=== PATIENT | male | born 1940 | race Caucasian/White ===

== ENCOUNTER 2017-12-10 05:48 | Day surgery (SDC) | payer MEDICARE, OTHER, SELFPAY ==
[2017-12-10] VITALS (7 sets, daily range): BP systolic 126–138; BP diastolic 64–83; PULSE 52–65; RESP 14–16; TEMP 36.1–36.6; O2SAT 92–100; BMI 30.9
--- NOTE | 2017-12-10 07:01 | US_ITS ---
PROCEDURES: TRANSRECTAL ULTRASOUND GUIDED - PROSTATE REASON FOR EXAM: Male, 77 years old. History of prostate cancer. TECHNIQUE: Ultrasound evaluation of the prostate was performed with real-time and static felton-scale imaging. BIOPSY: Prostate marker was placed under direct sonographic guidance. A consent form was signed, PT-PTT levels checked and a time-out was called. The patient is currently off any anticoagulant therapy. Cleansing enema: Yes COMPARISON: None. US/Intraoperative Ultrasound IMPRESSION: Ultrasound guided prostate marker placement. Electronically Signed: Mohan Chapman MD at 9:01 EST Tel [phone], Service support ,
--- NOTE | 2017-12-10 07:15 | PCM.DC.URO ---
Discharge Diet: Light diet - advance as tolerated Discharge Activity: Return to Normal Activity Call your doctor if your incision/area has: Continuous Slow Oozing, Sudden Increased Bleeding, Increased Pain/ Swelling, Increased Redness, Foul Smelling Discharge, Swelling at the incision site Suture Line Care: Avoid Pulling/Pushing, Avoid Pinching/Bending Allergies/Adverse Reactions: Allergies sulfamethoxazole [From Bactrim] Adverse Reaction (Verified 12/03/17 12:15) Nausea trimethoprim [From Bactrim] Adverse Reaction (Verified 12/03/17 12:15) Nausea Medications to take at Discharge Bicalutamide [Casodex] 50 mg PO DAILY 12/03/17 Leuprolide Acetate [Eligard] 30 mg SQ QMONTH 12/03/17 Primary Care Physician: Jb Yeboah MD [Primary Care Provider] - Please Follow Up With: Marek Verde MD When: Keep follow up appt.
[2017-12-10] MEDS: Cefazolin 2 GM in 0.9% Normal Saline 100 ML IV (07:16)
[2017-12-10] MEDS: Lidocaine Jelly 2% 20 ML Syringe (URO-JET) 20 APPLIC (07:22)
--- NOTE | 2017-12-10 07:26 | PCM.OPRPT ---
Problem List (1) Prostate cancer Status: Acute Report of Operation Date of Procedure: 12/10/17 Pre-Operative Diagnosis: Prostate cancer Post-Operative Diagnosis: Same Surgery/Procedure Performed:: Transrectal ultrasound-guided placement of 3 gold fiducial markers for radiation. Description of Surgical Findings:: 77-year-old male was taken back to the operating room after smooth induction of MAC local he was placed in dorsal lithotomy position. The patient requested anesthesia for this procedure. We then put up in dorsal lithotomy position. I introduced the ultrasound probe into the rectum. And used a guide and advanced the first security supervisor into the prostate on the right side. After placing a marker then I placed a second marker on the left side mid prostate. And then finally placed the ballast inspector on the right apex. After placing the 3 gold markers we could both visualized these on the ultrasound images were saved. Anesthesia was reversed probe was removed and he is taken back to the PACU in good condition. He will follow-up in my office for another hormone shot and he will start radiation therapy soon. Type of Anesthesia:: Local MAC Drains: none - Admit VTE Documentation VTE Present on Admission: No VTE Mechan Device Prophylaxis: SCD's VTE Pharm Prophylaxis ordered?: No Reason prophylaxis not ordered:: Treatment Not Indicated
--- NOTE | 2017-12-10 07:30 | OP.PCM_ITS ---
Problem List (1) Prostate cancer Status: Acute Report of Operation Date of Procedure: 12/10/17 Pre-Operative Diagnosis: Prostate cancer Post-Operative Diagnosis: Same Surgery/Procedure Performed:: Transrectal ultrasound-guided placement of 3 gold fiducial markers for radiation. Description of Surgical Findings:: 77-year-old male was taken back to the operating room after smooth induction of MAC local he was placed in dorsal lithotomy position. The patient requested anesthesia for this procedure. We then put up in dorsal lithotomy position. I introduced the ultrasound probe into the rectum. And used a guide and advanced the first temple marker into the prostate on the right side. After placing a marker then I placed a second marker on the left side mid prostate. And then finally placed the boat patcher plastic on the right apex. After placing the 3 gold markers we could both visualized these on the ultrasound images were saved. Anesthesia was reversed probe was removed and he is taken back to the PACU in good condition. He will follow-up in my office for another hormone shot and he will start radiation therapy soon. Type of Anesthesia:: Local MAC Drains: none - Admit VTE Documentation VTE Present on Admission: No VTE Mechan Device Prophylaxis: SCD's VTE Pharm Prophylaxis ordered?: No Reason prophylaxis not ordered:: Treatment Not Indicated
== END 2017-12-10 08:29 | disposition home or self-care (01) ==
LOC: SDC 05:49 → AC 05:51
PROVIDERS: Family Provider Family Medicine; PCP Family Medicine; Visit Provider Urology
DX: C61 Malignant neoplasm of prostate (principal); E78.00 Pure hypercholesterolemia, unspecified; N52.9 Male erectile dysfunction, unspecified; R97.20 Elevated prostate specific antigen [PSA]; Z87.891 Personal history of nicotine dependence
CPT/HCPCS: 55876; 76998; J3010; J7120; J2405

== ENCOUNTER → 2017-12-27 11:24 | Outpatient (CLI) | payer MEDICARE, OTHER, SELFPAY ==
[2017-12-27 12:12] LABS: Absolute Lymphocyte Count 1.43 X10^3/ul (0.83-4.51); Absolute Neutrophil Count 3.4 X10^3/uL (2.0-7.7); Basophil# 0.01 X10^3/uL; Basophil% 0.2 % (0-1); Eosinophil# 0.13 X10^3/uL; Eosinophils% 2.4 % (0-5); Hematocrit 43.8 % (40-54); Hemoglobin 14.4 g/dl (13.0-16.5); Lymphocyte # 1.43 X10^3/ul (4.0); Lymphocyte % 26.6 % (19-41); Mean Corp Hgb Conc 32.9 g/gl (32-36); Mean Corpuscular Hgb 29.9 pg (27.0-32.0); Mean Corpuscular Volume 91.1 fL (80-94); Mean Platelet Vol. 10.8 fl (6.2-12.0); Monocyte# 0.41 X10^3/uL; Monocyte% 7.6 % (0-10); Neutrophil # 3.37 X10^3/uL (2.7-7.7); Neutrophil % 62.8 % (47-70); Platelet Count 252 K/mm3 (150-450); RBC Distribution Width CV 12.3 % (11.6-14.6); RBC Distribution Width SD 40.7 fl (35.1-43.9); Red Blood Count 4.81 M/mm3 (4.6-6.2); White Blood Count 5.4 K/mm3 (4.4-11.0)
[2017-12-27 12:20] LABS: POSITIVE COUNT NO; POSITIVE DIFFERENTIAL NO; POSITIVE MORPHOLOGY NO
[2017-12-27 12:48] LABS: Creatinine, Serum 1.17 mg/dL (0.70-1.30); EST Glomerular Filtration Rate 64 mL/min (>60); Est Glom Filt Rate - Afr Amer 78 mL/min (>60); PSA,Total- Diagnostic 0.09 ng/mL (0.0-4.0)
== END ==
PROVIDERS: Family Provider Family Medicine; PCP Family Medicine; Visit Provider Radiology Radiation Oncology
DX: C61 Malignant neoplasm of prostate (principal); Z01.818 Encounter for other preprocedural examination
CPT/HCPCS: 36415; 82565; 84153; 85025

== ENCOUNTER → 2017-12-28 13:12 | Outpatient (CLI) | payer MEDICARE, OTHER, SELFPAY ==
--- NOTE | 2017-12-28 13:14 | CT_ITS ---
STUDY: CT PELVIS WITH CONTRAST REASON FOR EXAM: Male, 77 years old. Prostate carcinoma, radiation plan. Prior surgical history of appendectomy. RADIATION DOSAGE (If Supplied By Facility): CTDIvol = ( 24.5 ) mGy, DLP = ( 962.66 ) mGycm TECHNIQUE: Transaxial imaging of the pelvis was performed without oral contrast. 100 ml of Isovue 300 contrast was administered intravenously. No sagittal/coronal reconstruction images available for review. Individualized dose optimization techniques were used for this CT. COMPARISON: CT abdomen/pelvis 08/09/2017. Correlation ultrasound prostate 12/10/2017. FINDINGS: Urinary bladder is moderately filled and shows no focal enhancing lesion. Moderate amount of dependent IV contrast fills the posterior bladder without obvious filling defect noted. However, inferior posterior bladder is indented by the enlarged prostate with smooth margins. Prostate is approximate 4.5 x 5.8 cm. High attenuation tubular structure is noted within the distal urethra but terminates near the inferior prostate. Seminal vesicles appear symmetric. Normal visualized small intestine. Normal visualized colon status post appendectomy. There is no pelvic fluid. There is no pelvic lymphadenopathy or mass lesion. Visualized pelvic arteries show no aneurysm with moderate bilateral calcifications noted. Normal abdominal wall. No ventral pelvic or visualized inguinal bowel herniation identified. Moderate L3-L4 and severe L4-L5 spinal canal stenosis and degenerative changes noted. CT/Pelvis WITH IV Contrast IMPRESSION: Prostatomegaly as described. No pelvic or visualized inguinal lymphadenopathy identified. Feng type urinary catheter is seen, terminates just below the prostate within the urethra. Clinical correlation recommended. Severe L4-L5 spinal canal stenosis and degenerative changes. Moderate L3-L4 spinal canal stenosis and degenerative changes noted. Electronically Signed: Daniel Rivas, at 16:34 EDT Tel , Service support ,
== END ==
PROVIDERS: Family Provider Family Medicine; PCP Family Medicine; Visit Provider Radiology Radiation Oncology
DX: C61 Malignant neoplasm of prostate (principal)
CPT/HCPCS: 72193; Q9967

== ENCOUNTER → 2018-01-26 14:18 | Outpatient (CLI) | payer MEDICARE, OTHER, SELFPAY ==
[2018-01-26 15:49] LABS: Absolute Lymphocyte Count 0.81 X10^3/ul (0.83-4.51); Absolute Neutrophil Count 3.3 X10^3/uL (2.0-7.7); Basophil# 0.02 X10^3/uL; Basophil% 0.4 % (0-1); Eosinophil# 0.11 X10^3/uL; Eosinophils% 2.3 % (0-5); Hematocrit 40.6 % (40-54); Hemoglobin 13.6 g/dl (13.0-16.5); Lymphocyte # 0.81 X10^3/ul (4.0); Mean Corp Hgb Conc 33.5 g/gl (32-36); Mean Corpuscular Hgb 30.6 pg (27.0-32.0); Mean Corpuscular Volume 91.2 fL (80-94); Monocyte# 0.46 X10^3/uL; Monocyte% 9.7 % (0-10); Neutrophil # 3.34 X10^3/uL (2.7-7.7); Neutrophil % 70.2 % (47-70); Platelet Count 175 K/mm3 (150-450); RBC Distribution Width CV 12.4 % (11.6-14.6); RBC Distribution Width SD 40.5 fl (35.1-43.9); Red Blood Count 4.45 M/mm3 (4.6-6.2); White Blood Count 4.8 K/mm3 (4.4-11.0)
[2018-01-26 15:50] LABS: POSITIVE COUNT NO; POSITIVE DIFFERENTIAL NO; POSITIVE MORPHOLOGY NO
== END ==
PROVIDERS: Family Provider Family Medicine; PCP Family Medicine; Visit Provider Radiology Radiation Oncology
DX: C61 Malignant neoplasm of prostate (principal)
CPT/HCPCS: 36415; 85025

== ENCOUNTER → 2018-02-17 11:36 | Outpatient (CLI) | payer MEDICARE, OTHER, SELFPAY ==
[2018-02-17 12:11] LABS: Absolute Lymphocyte Count 0.47 X10^3/ul (0.83-4.51); Absolute Neutrophil Count 2.7 X10^3/uL (2.0-7.7); Basophil# 0.01 X10^3/uL; Basophil% 0.3 % (0-1); Eosinophil# 0.12 X10^3/uL; Eosinophils% 3.2 % (0-5); Hematocrit 39.5 % (40-54); Hemoglobin 13.2 g/dl (13.0-16.5); Lymphocyte # 0.47 X10^3/ul (4.0); Lymphocyte % 12.4 % (19-41); Mean Corp Hgb Conc 33.4 g/gl (32-36); Mean Corpuscular Hgb 30.6 pg (27.0-32.0); Mean Corpuscular Volume 91.6 fL (80-94); Mean Platelet Vol. 10.1 fl (6.2-12.0); Monocyte# 0.48 X10^3/uL; Monocyte% 12.7 % (0-10); Neutrophil # 2.67 X10^3/uL (2.7-7.7); Neutrophil % 70.6 % (47-70); Platelet Count 225 K/mm3 (150-450); RBC Distribution Width CV 12.8 % (11.6-14.6); RBC Distribution Width SD 41.9 fl (35.1-43.9); Red Blood Count 4.31 M/mm3 (4.6-6.2); White Blood Count 3.8 K/mm3 (4.4-11.0)
[2018-02-17 12:17] LABS: Differential Indicated SCAN CRITERIA MET; POSITIVE COUNT NO; POSITIVE DIFFERENTIAL YES; POSITIVE MORPHOLOGY NO
== END ==
PROVIDERS: Family Provider Family Medicine; PCP Family Medicine; Visit Provider Radiology Radiation Oncology
DX: C61 Malignant neoplasm of prostate (principal)
CPT/HCPCS: 36415; 85025

== ENCOUNTER → 2018-09-05 09:36 | Outpatient (CLI) | payer MEDICARE, OTHER, SELFPAY ==
[2018-09-05 11:17] LABS: PSA,Total- Diagnostic < 0.01 ng/mL (0.0-4.0)
--- OUTSIDE RECORDS SUMMARY | 2018-10-29 14:05 | XMS RPT_ITS ---
:1940 Author Organization OHIP Care Team Providers Name Role Phone Marek Verde Attending Unavailable Marek Verde Referring Unavailable Yeboah, Jb Primary Care Unavailable Yayo Pastor Attending Unavailable Yayo Pastor Referring Unavailable Yeboah, Jb Primary Care Unavailable Yayo Pastor Attending Unavailable iderYayo Referring Unavailable Yeboah, Jb Primary Care Unavailable iderYayo Attending Unavailable Seider, Yayo Referring Unavailable Yeboah, Jb Primary Care Unavailable Yayo Pastor Attending Unavailable Seider, Yayo Referring Unavailable Yeboah, Jb Primary Care Unavailable Marek Verde Attending Unavailable Marek Verde Referring Unavailable Yeboah, Jb Primary Care Unavailable PROBLEMS PROBLEMS DATE TYPE CONDITION / CODE ATTENDING STATUS SOURCE 12/27/2017 Unknown C61 - Malignant Yayo Pastor neoplasm of Community prostate / Hospital C61(ICD-10) Repository 12/27/2017 Unknown Z01.818 - Encounter Yayo Pastor for other Community preprocedural Hospital examination / Repository Z01.818(ICD-10) PROCEDURES PROCEDURES No Procedure Records FoundRESULTS RESULTS PSA,TOTAL- DIAGNOSTIC Collected: 09/05/2018 Status: F Source: [place] 9:42 AM [facility] REPOSITORY TYPE CODE TESTS RESULT OUT OF RANGE REFERENCE UNITS LAB L501.9940 0.0-4.0 ng/mL PSA, Normal DIAGNOSTIC < 0.01 Result Comment: This test was performed using the TPSA assay method for the Mobile Shareholder chemistry system. Values obtained with different assay methods cannot be used interchangably. When changing PSA assays in the course of monitoring a patient, additional sequential testing should be carried out to confirm baseline values. Performed By: #### L501.9940 #### [facility] [place], [address] CBC W/DIFF, AUTOMATED Collected: 02/17/2018 Status: F Source: [place] 11:46 AM [facility] REPOSITORY TYPE CODE TESTS RESULT OUT OF RANGE REFERENCE UNITS LAB L100.1000 4.4-11.0 K/mm3 Low WBC 3.8 LAB L100.1200 4.6-6.2 M/mm3 Low RBC 4.31 LAB L100.1300 13.0-16.5 g/dl Normal HGB 13.2 LAB L100.1400 40-54 % Low HCT 39.5 LAB L100.1500 80-94 fL Normal MCV 91.6 LAB L100.1600 27.0-32.0 pg Normal MCH 30.6 LAB L100.1700 32-36 g/gl Normal MCHC 33.4 LAB L100.1810 11.6-14.6 % Normal RDW CV 12.8 LAB L100.1820 35.1-43.9 fl Normal RDW SD 41.9 LAB L100.1900 150-450 K/mm3 Normal PLT 225 LAB L100.2000 6.2-12.0 fl Normal MPV 10.1 LAB L100.2100 47-70 % High NEUT% 70.6 LAB L100.2200 19-41 % Low LY% 12.4 LAB L100.2300 0-10 % High MONO% 12.7 LAB L100.2400 0-5 % Normal EO% 3.2 LAB L100.2500 0-1 % Normal BASO% 0.3 LAB L100.2550 0.0-0.9 % Normal IM GRAN % 0.800 Result Comment: IG% - Immature Granulocytes (promyelocytes, myelocytes and metamyelocytes) > 1% indicates that a LEFT SHIFT is Present. LAB L100.2620 2.0-7.7 X10 3/uL Normal Absolute Neut 2.7 LAB L100.2720 0.83-4.51 X10 3/ul Low Absolute Lymph 0.47 LAB L100.4500 Normal SMEAR COMMENT COMMENT Result Comment: SLIDE SCANNED - LYMPHOPENIA NOTED. Performed By: #### L100.0100 #### [facility] [address] [place], [address] CBC W/DIFF, AUTOMATED Collected: 01/26/2018 Status: F Source: [place] 2:33 PM [facility] REPOSITORY TYPE CODE TESTS RESULT OUT OF RANGE REFERENCE UNITS LAB L100.1000 4.4-11.0 K/mm3 Normal WBC 4.8 LAB L100.1200 4.6-6.2 M/mm3 Low RBC 4.45 LAB L100.1300 13.0-16.5 g/dl Normal HGB 13.6 LAB L100.1400 40-54 % Normal HCT 40.6 LAB L100.1500 80-94 fL Normal MCV 91.2 LAB L100.1600 27.0-32.0 pg Normal MCH 30.6 LAB L100.1700 32-36 g/gl Normal MCHC 33.5 LAB L100.1810 11.6-14.6 % Normal RDW CV 12.4 LAB L100.1820 35.1-43.9 fl Normal RDW SD 40.5 LAB L100.1900 150-450 K/mm3 Normal PLT 175 LAB L100.2000 6.2-12.0 fl Normal MPV 11.0 LAB L100.2100 47-70 % High NEUT% 70.2 LAB L100.2200 19-41 % Low LY% 17.0 LAB L100.2300 0-10 % Normal MONO% 9.7 LAB L100.2400 0-5 % Normal EO% 2.3 LAB L100.2500 0-1 % Normal BASO% 0.4 LAB L100.2550 0.0-0.9 % Normal IM GRAN % 0.400 Result Comment: IG% - Immature Granulocytes (promyelocytes, myelocytes and metamyelocytes) > 1% indicates that a LEFT SHIFT is Present. LAB L100.2620 2.0-7.7 X10 3/uL Normal Absolute Neut 3.3 LAB L100.2720 0.83-4.51 X10 3/ul Low Absolute Lymph 0.81 Performed By: #### L100.0100 #### [facility] [address] [place], [address] PELVIS WITH IV Observed: 12/28/2017 Status: F Source: [place] CONTRAST 1:14 PM [facility] REPOSITORY [facility] Imaging Services [address] [place] [address] Pelvis WITH IV Contrast MR#: [id number] Acct: [id number] Name: AMENA JURADO Rep #: [id number] : 1940 M 77 From: Daniel Rivas MD PCP: Jb Yeboah MD Status: REG CLI Study: Pelvis WITH IV Contrast Date of Exam: 12/28/17 Exam# [id number] Ordering Dr: Yayo Pastor MD STUDY: CT PELVIS WITH CONTRAST REASON FOR EXAM: Male, 77 years old. Prostate carcinoma, radiation plan. Prior surgical history of appendectomy. RADIATION DOSAGE (If Supplied By Facility): CTDIvol = ( 24.5 ) mGy, DLP = ( 962.66 ) mGycm TECHNIQUE: Transaxial imaging of the pelvis was performed without oral contrast. 100 ml of Isovue 300 contrast was administered intravenously. No sagittal/coronal reconstruction images available for review. Individualized dose optimization techniques were used for this CT. COMPARISON: CT abdomen/pelvis 08/09/2017. Correlation ultrasound prostate 12/10/2017. FINDINGS: Urinary bladder is moderately filled and shows no focal enhancing lesion. Moderate amount of dependent IV contrast fills the posterior bladder without obvious filling defect noted. However, inferior posterior bladder is indented by the enlarged prostate with smooth margins. Prostate is approximate 4.5 x 5.8 cm. High attenuation tubular structure is noted within the distal urethra but terminates near the inferior prostate. Seminal vesicles appear symmetric. Normal visualized small intestine. Normal visualized colon status post appendectomy. There is no pelvic fluid. There is no pelvic lymphadenopathy or mass lesion. Visualized pelvic arteries show no aneurysm with moderate bilateral calcifications noted. Normal abdominal wall. No ventral pelvic or visualized inguinal bowel herniation identified. Moderate L3-L4 and severe L4-L5 spinal canal stenosis and degenerative changes noted. CT/Pelvis WITH IV Contrast IMPRESSION: Prostatomegaly as described. No pelvic or visualized inguinal lymphadenopathy identified. Feng type urinary catheter is seen, terminates just below the prostate within the urethra. Clinical correlation recommended. Severe L4-L5 spinal canal stenosis and degenerative changes. Moderate L3-L4 spinal canal stenosis and degenerative changes noted. Electronically Signed: Daniel Chower, at 16:34 EDT Tel , Service support , CC: Jb Yeboah MD; Yayo Pastor MD Nuclear Powerplant Supervisor: Signed CBC W/DIFF, AUTOMATED Collected: 12/27/2017 Status: F Source: [place] 11:28 AM [facility] REPOSITORY TYPE CODE TESTS RESULT OUT OF RANGE REFERENCE UNITS LAB L100.1000 4.4-11.0 K/mm3 Normal WBC 5.4 LAB L100.1200 4.6-6.2 M/mm3 Normal RBC 4.81 LAB L100.1300 13.0-16.5 g/dl Normal HGB 14.4 LAB L100.1400 40-54 % Normal HCT 43.8 LAB L100.1500 80-94 fL Normal MCV 91.1 LAB L100.1600 27.0-32.0 pg Normal MCH 29.9 LAB L100.1700 32-36 g/gl Normal MCHC 32.9 LAB L100.1810 11.6-14.6 % Normal RDW CV 12.3 LAB L100.1820 35.1-43.9 fl Normal RDW SD 40.7 LAB L100.1900 150-450 K/mm3 Normal PLT 252 LAB L100.2000 6.2-12.0 fl Normal MPV 10.8 LAB L100.2100 47-70 % Normal NEUT% 62.8 LAB L100.2200 19-41 % Normal LY% 26.6 LAB L100.2300 0-10 % Normal MONO% 7.6 LAB L100.2400 0-5 % Normal EO% 2.4 LAB L100.2500 0-1 % Normal BASO% 0.2 LAB L100.2550 0.0-0.9 % Normal IM GRAN % 0.400 Result Comment: IG% - Immature Granulocytes (promyelocytes, myelocytes and metamyelocytes) > 1% indicates that a LEFT SHIFT is Present. LAB L100.2620 2.0-7.7 X10 3/uL Normal Absolute Neut 3.4 LAB L100.2720 0.83-4.51 X10 3/ul Normal Absolute Lymph 1.43 Performed By: #### L100.0100 #### [facility] [address] [place], [place], [id number] SERUM CREATININE AND Collected: 12/27/2017 Status: F Source: [place] GFR 11:28 AM [facility] REPOSITORY TYPE CODE TESTS RESULT OUT OF RANGE REFERENCE UNITS LAB L501.1100 0.70-1.30 mg/dL Normal 1.17 CREAT,SERUM Result Comment: The validity of the calculated GFR AND GFRAA in patients over 70 years has not been determined. Clinical correlation is essential. LAB L501.1110 >60 mL/min Normal EST GFR 64 Result Comment: Non- GFR Calc LAB L501.1115 >60 mL/min Normal EST GFR - AA 78 Result Comment: GFR Calc Performed By: #### L501.1105, L501.9940 #### [facility] [address] [place], [place], [address] PSA,TOTAL- DIAGNOSTIC Collected: 12/27/2017 Status: F Source: [place] 11:28 AM [facility] REPOSITORY TYPE CODE TESTS RESULT OUT OF RANGE REFERENCE UNITS LAB L501.9940 0.0-4.0 ng/mL PSA, Normal DIAGNOSTIC 0.09 Result Comment: This test was performed using the TPSA assay method for the Mobile Shareholder chemistry system. Values obtained with different assay methods cannot be used interchangably. When changing PSA assays in the course of monitoring a patient, additional sequential testing should be carried out to confirm baseline values. Performed By: #### L501.1105, L501.9940 #### [facility] [address] [place], [address] OPERATIVE REPORT Observed: 12/10/2017 Status: F Source: [place] 7:30 AM [facility] REPOSITORY [facility] Medical Records Department [address] [place] [address] Operative Report 12/10/17725 MR#: [id number] Acct: [id number] Name: AMENA JURADO Rep #: [id number] : 1940 77 From: Marek Verde MD PCP: Jb Yeboah MD Status: REG [facility] [place] Location: [place] [address] Problem List (1) Prostate cancer Status: Acute Report of Operation Date of Procedure: 12/10/17 Pre-Operative Diagnosis: Prostate cancer Post-Operative Diagnosis: Same Surgery/Procedure Performed:: Transrectal ultrasound-guided placement of 3 gold fiducial markers for radiation. Description of Surgical Findings:: 77-year-old male was taken back to the operating room after smooth induction of MAC local he was placed in dorsal lithotomy position. The patient requested anesthesia for this procedure. We then put up in dorsal lithotomy position. I introduced the ultrasound probe into the rectum. And used a guide and advanced the first securities attorney into the prostate on the right side. After placing a marker then I placed a second marker on the left side mid prostate. And then finally placed the last inserter on the right apex. After placing the 3 gold markers we could both visualized these on the ultrasound images were saved. Anesthesia was reversed probe was removed and he is taken back to the PACU in good condition. He will follow-up in my office for another hormone shot and he will start radiation therapy soon. Type of Anesthesia:: Local MAC Drains: none - Admit VTE Documentation VTE Present on Admission: No VTE Mechan Device Prophylaxis: SCD's VTE Pharm Prophylaxis ordered?: No Reason prophylaxis not ordered:: Treatment Not Indicated 12/10/17729 <Electronically signed by Marek Verde MD> Date Marek Verde MD CC: Jb Yeboah MD; Marek Verde MD Signed DISCHARGE INSTRUCTION Observed: 12/10/2017 Status: F Source: [place] 7:16 AM [facility] Medical Records Department [address] [place] [address] Instructions for Home/Discharge Instructions 12/10/17714 MR#: [id number] Acct: [id number] Name: AMENA JURADO Rep #: [id number] : 1940 77 From: Marek Verde MD PCP: Jb Yeboah MD Status: REG [facility] Discharge Diet: Light diet - advance as tolerated Discharge Activity: Return to Normal Activity Call your doctor if your incision/area has: Continuous Slow Oozing, Sudden Increased Bleeding, Increased Pain/ Swelling, Increased Redness, Foul Smelling Discharge, Swelling at the incision site Suture Line Care: Avoid Pulling/Pushing, Avoid Pinching/Bending Allergies/Adverse Reactions: Allergies sulfamethoxazole [From Bactrim] Adverse Reaction (Verified 12/03/17 12:15) Nausea trimethoprim [From Bactrim] Adverse Reaction (Verified 12/03/17 12:15) Nausea Medications to take at Discharge Bicalutamide [Casodex] 50 mg PO DAILY 12/03/17 Leuprolide Acetate [Eligard] 30 mg SQ QMONTH 12/03/17 Primary Care Physician: Jb Yeboah MD [Primary Care Provider] - Please Follow Up With: Marek Verde MD When: Keep follow up appt. 12/10/17715 <Electronically signed by Marek Verde MD> Date Marek Verde MD CC: Jb Yeboah MD INTRAOPERATIVE ULTRASOUND Observed: 12/10/2017 Status: F Source: [place] 7:01 AM [facility] Imaging Services [address] [place] [address] Intraoperative Ultrasound MR#: [id number] Acct: [id number] Name: AMENA JURADO Rep #: [id number] : 1940 M 77 From: Mohan Chapman MD PCP: Jb Yeboah MD Status: [facility] Study: Intraoperative Ultrasound Date of Exam: 12/10/17 Exam# [id number] Ordering Dr: Marek Verde MD PROCEDURES: TRANSRECTAL ULTRASOUND GUIDED - PROSTATE REASON FOR EXAM: Male, 77 years old. History of prostate cancer. TECHNIQUE: Ultrasound evaluation of the prostate was performed with real-time and static felton-scale imaging. BIOPSY: Prostate marker was placed under direct sonographic guidance. A consent form was signed, PT-PTT levels checked and a time- out was called. The patient is currently off any anticoagulant therapy. Cleansing enema: Yes COMPARISON: None. US/Intraoperative Ultrasound IMPRESSION: Ultrasound guided prostate marker placement. Electronically Signed: Mohan Chapman MD at 9:01 EST Tel [phone], Service support , CC: Jb Yeboah MD; Marek Verde MD Nuclear Powerplant Supervisor: Signed ALLERGIES ALLERGIES DATE TYPE / CODE NAME / CODE REACTION SEVERITY SOURCE 12/03/2017 Drug sulfamethoxa Nausea Unknown [place] [facility] All[facility]/4160 zole/[id number] [facility](SNOMED 827(RXNORM) Repository CT) 12/03/2017 Drug trimethoprim Nausea Unknown [place] [facility] Allergy/4160 /[id number]( Hospital [facility](SNOMED RXNORM) Repository CT) ENCOUNTERS ENCOUNTERS ADMIT/DISCHARGE ACCOUNT ADMITTING ENCOUNTER LOCATION SOURCE NUMBER CLASS 09/05/2018 [id number] Ambulatory [place] [facility] ing:LAB Repository 02/17/2018 [id number] Ambulatory [place] 6 [facility] ing:LAB Repository 01/26/2018 [id number] Ambulatory [place] 9 [facility] ing:LAB Repository 12/28/2017 [id number] Ambulatory [place] 1 [facility] ing:CT Repository 12/27/2017 [id number] Ambulatory [place] 7 [facility] ing:LAB Repository 12/10/2017/ [id number] Ambulatory [place] 8 [facility] ing:SDC Repository PAYERS PAYERS ENCOUNTER GUARANTOR PAYER SUBSCRIBER SOURCE 09/05/2018 AMENA H Primary AMENA H [place] [id number] Insurance:MEDICARE BURCKHARTDOB: Community [place] PART A BPolicy [facility]: [id number] [id number] Repository , [place] [address]Mlv: Date:2018-09-05 () 09/05/2018 Secondary AMENA H [place] Insurance:HUMANA BURCKHARTDOB: [facility] [id number] Hospital Number: Repository [id number] Date:0121-43-06AR [address] [address]W[place]: 09/05/2018 Tertiary NOT GIVENUNK [place] Insurance:SELF PAY [facility] Number: Effective Repository Date:2018-09-05 02/17/2018 Amena H Primary Amena H [place] [id number] Insurance:MEDICARE BurckhartDOB: Community [place] PART A BPolicy Number: [id number] [id number] Repository , [place] [address]Dhv: Date:2018-02-17 () 02/17/2018 Secondary Amena H [place] Insurance:HUMANA BurckhartDOB: [facility] [id number] Hospital Number: Repository [id number] Date:2966-60-31IW [address] [address]MD: 02/17/2018 Tertiary NOT GIVENUNK [place] Insurance:SELF PAY [facility] Number: Effective Repository Date:2018-02-17 01/26/2018 Amena H Primary Amena H [place] [id number] Insurance:MEDICARE BurckhartDOB: Community [place] PART A BPolicy Number: [id number] General Hospital [id number] Repository , [place] [address]Ens: Date:2018-01-26 () 01/26/2018 Secondary Amena H [place] Insurance:HUMANA BurckhartDOB: [facility] [id number] Hospital Number: Repository [id number] Date:[id number] [address]OK: 01/26/2018 Tertiary NOT GIVENUNK [place] Insurance:SELF PAY [facility] Hospital Number: Effective Repository Date:2018-01-26 12/28/2017 Amena H Primary Amena H [place] [id number] Insurance:MEDICARE BurckhartDOB: Community [place] PART A BPolicy Number: [id number] Hospital [id number] Repository , [place] [address]Hdu: Date:2017-11-16 () 12/28/2017 Secondary Amena H [place] Insurance:HUMANA BurckhartDOB: [facility] [id number] Hospital Number: Repository [id number] Date:[id number] [address]MK: 12/28/2017 Tertiary NOT GIVENUNK [place] Insurance:SELF PAY [facility] Hospital Number: Effective Repository Date:2017-11-16 12/27/2017 Amena H Primary Amena H [place] [id number] Insurance:MEDICARE BurckhartDOB: Community [place] PART A BPolicy Number: [id number] [facility] Hospital [id number] Repository , [place] [address]Cid: Date:2017-12-27 () 12/27/2017 Secondary Amena H [place] Insurance:HUMANA BurckhartDOB: [facility] [id number] Hospital Number: Repository [id number] Date:7193-47-56OZ [address] [place] [address]KS: 12/27/2017 Tertiary NOT GIVENUNK [place] Insurance:SELF PAY [facility] Number: Effective Repository Date:2017-12-27 12/10/2017 Amena H Primary Amena H [place] [id number] Insurance:MEDICARE [facility] [place] PART A BPolicy Number: [id number] General Hospital [id number] Repository , [place] [address]Ofz: Date:2017-11-09 () 12/10/2017 Secondary Amena H [place] Insurance:HUMANA AmyDOB: [facility] [id number] Hospital Number: Repository [id number] Date:8914-36-13[place] [address], [place] [address]DY: 12/10/2017 Tertiary NOT GIVENUNK [place] Insurance:SELF PAY [facility] Hospital Number: Effective Repository Date:2017-11-09
== END ==
PROVIDERS: Family Provider Family Medicine; PCP Family Medicine; Referring Provider Urology; Visit Provider Urology
DX: C61 Malignant neoplasm of prostate (principal)
CPT/HCPCS: 36415; 84153

== ENCOUNTER → 2019-02-24 12:52 | Outpatient (CLI) | payer MEDICARE, OTHER, SELFPAY ==
[2017-12-10 06:10] VITALS: BMI 30.9
[2019-02-24 13:59] LABS: PSA,Total- Diagnostic 0.01 ng/mL (0.0-4.0)
== END ==
PROVIDERS: Family Provider Family Medicine; PCP Family Medicine; Referring Provider Urology; Visit Provider Urology
DX: C61 Malignant neoplasm of prostate (principal)
CPT/HCPCS: 36415; 84153

== ENCOUNTER → 2019-08-28 14:27 | Outpatient (CLI) | payer MEDICARE, OTHER, SELFPAY ==
[2019-08-28 16:28] LABS: PSA,Total- Diagnostic < 0.01 ng/mL (0.0-4.0)
== END ==
PROVIDERS: Family Provider Family Medicine; PCP Family Medicine; Referring Provider Urology; Visit Provider Urology
DX: C61 Malignant neoplasm of prostate (principal)
CPT/HCPCS: 36415; 84153

== ENCOUNTER → 2020-03-01 13:35 | Outpatient (CLI) | payer MEDICARE, OTHER, SELFPAY ==
[2017-12-10 06:10] VITALS: BMI 30.9
[2020-03-01 15:38] LABS: PSA,Total - Annual Screen < 0.01 ng/mL (0.00-4.00)
== END ==
PROVIDERS: PCP Family Medicine; Referring Provider Urology; Visit Provider Urology
DX: C61 Malignant neoplasm of prostate (principal)
CPT/HCPCS: 36415; 84153; G0103

== ENCOUNTER → 2020-03-12 09:31 | Outpatient (CLI) | payer MEDICARE, OTHER, SELFPAY ==
[2017-12-10 06:10] VITALS: BMI 30.9
== END ==
PROVIDERS: PCP Family Medicine; Referring Provider Urology; Visit Provider Urology
DX: C61 Malignant neoplasm of prostate (principal)
CPT/HCPCS: 36415; 84403

== ENCOUNTER → 2020-06-06 14:11 | Outpatient (CLI) | payer MEDICARE, OTHER, SELFPAY ==
[2017-12-10 06:10] VITALS: BMI 30.9
[2020-06-06 15:08] LABS: PSA,Total- Diagnostic 0.09 ng/mL (0.0-4.0)
== END ==
PROVIDERS: PCP Family Medicine; Referring Provider Urology; Visit Provider Urology
DX: C61 Malignant neoplasm of prostate (principal)
CPT/HCPCS: 36415; 84153; 84403

== ENCOUNTER → 2020-07-23 | Outpatient (CLI) | payer MEDICARE, OTHER, SELFPAY ==
[2017-12-10 06:10] VITALS: BMI 30.9
== END | disposition home or self-care (01) ==
LOC: LABSPEC 16:42
PROVIDERS: PCP Family Medicine; Referring Provider Family Medicine; Visit Provider Registered Nurse
DX: Z20.828 Contact with and (suspected) exposure to other viral communicable diseases (principal)
CPT/HCPCS: 87635; U0003

== ENCOUNTER → 2021-01-17 16:16 | Outpatient (CLI) | payer MEDICARE, OTHER, SELFPAY ==
[2017-12-10 06:10] VITALS: BMI 30.9
[2021-01-17 18:00] LABS: PSA,Total- Diagnostic 0.21 ng/mL (0.0-4.0)
== END ==
PROVIDERS: PCP Family Medicine; Referring Provider Urology; Visit Provider Urology
DX: C61 Malignant neoplasm of prostate (principal)
CPT/HCPCS: 36415; 84153

== ENCOUNTER → 2021-05-13 15:11 | Outpatient (CLI) | payer MEDICARE, OTHER, SELFPAY ==
[2017-12-10 06:10] VITALS: BMI 30.9
[2021-05-13 17:07] LABS: PSA,Total- Diagnostic 0.36 ng/mL (0.0-4.0)
== END ==
PROVIDERS: PCP Family Medicine; Referring Provider Urology; Visit Provider Urology
DX: E29.1 Testicular hypofunction (principal); C61 Malignant neoplasm of prostate
CPT/HCPCS: 36415; 84153; 84403

== ENCOUNTER → 2021-08-19 14:32 | Outpatient (CLI) | payer MEDICARE, OTHER, SELFPAY ==
[2021-08-19 15:45] LABS: PSA,Total- Diagnostic 0.13 ng/mL (0.0-4.0)
== END ==
PROVIDERS: PCP Family Medicine; Visit Provider Urology
DX: C61 Malignant neoplasm of prostate (principal)
CPT/HCPCS: 36415; 84153; 84403

== ENCOUNTER → 2022-02-20 | Outpatient (CLI) | payer MEDICARE, OTHER, SELFPAY ==
[2022-02-20 13:52] LABS: PSA,Total- Diagnostic 0.25 ng/mL (0.0-4.0)
== END | disposition home or self-care (01) ==
LOC: LAB 13:06
PROVIDERS: PCP Family Medicine; Referring Provider Urology; Visit Provider Urology
DX: C61 Malignant neoplasm of prostate (principal)
CPT/HCPCS: 36415; 84153

== ENCOUNTER 2023-03-26 09:26 | Emergency (ER) | payer MEDICARE, OTHER, SELFPAY ==
[2023-03-26] VITALS (7 sets, daily range): BP systolic 164–235; BP diastolic 60–104; PULSE 60–76; RESP 15–16; TEMP 36.2; O2SAT 96–98; BMI 31.8
--- NOTE | 2023-03-26 10:10 | EDS_ITS ---
HPI History of Present Illness Chief Complaint: Hypertension Informant: patient Narrative Narrative: Patient presents secondary to high blood pressure. He states that he started noticing elevated blood pressure readings last fall around the 150 systolic range. The last week or so he had been running in the 170s systolic and today was even higher so he came into the emergency room. He states he had been justifying it by eating more salty foods. He tried cutting these out but did not notice an improvement in his blood pressure. He admits that he has not seen his primary care physician in quite some time. He denies chest pain or palpitations. No urinary symptoms. Patient states he started using topical testosterone a little over a year ago. His blood pressures were unaffected for the first several months on this medicine. He also states that he started using CBD about a month ago, but again had high blood pressure readings before initiating this. PFSH PFS Medical History Prostate cancer Home Medications testosterone 1 topical DAILY 03/26/23 [History Last Taken Unknown] vit C 250 mg-vit E 90 mg-zinc 40 mg-copper 1 [id number] capsule (PreserVision AREDS-2) 1 tab PO BID 03/26/23 [History Last Taken Unknown] Allergy/AdvReac Type Severity Reaction Status Date / Time sulfamethoxazole AdvReac Nausea Verified 03/26/23 09:27 [From Bactrim] trimethoprim [From Bactrim] AdvReac Nausea Verified 03/26/23 09:27 Surgical History History of appendectomy History of tonsillectomy Social History Smoking Status: Former smoker ROS ROS ED Constitutional Constitutional ED: Denies chills or fever(s) Eyes Eyes: Denies change in vision or discharge from eye(s) ENT ENT ED: Denies discharge from eye(s), rhinorrhea or sore throat Cardiovascular Cardiovascular: Denies chest pain or palpitations Respiratory/Chest Respiratory/Chest: Denies cough or dyspnea Gastrointestinal Gastrointestinal: Denies abdominal pain, nausea or vomiting Genitourinary Genitourinary ED: Denies dysuria Musculoskeletal Musculoskeletal: Denies back pain or extremity pain Integumentary Denies Abrasions or rash Neurologic Neurologic: Denies headache(s) or weakness Psychiatric Psychiatric: Denies anxiety or depression Allergic/Immunologic Allergic/Immunologic ED: Denies lip swelling or urticaria EXAM Physical Exam Const Vital Signs: 03/26/23 09:27 03/26/23 09:35 03/26/23 09:37 Temperature 97.1 F L Temperature Source Temporal Pulse Rate 76 71 Respiratory Rate 16 15 Respiratory Effort Normal Respiratory Pattern Normal Blood Pressure 235/104 H 219/94 H Blood Pressure Mean 147 135 Pulse Ox 98 97 Oxygen Delivery Method Room Air Room Air 03/26/23 09:59 Temperature Temperature Source Pulse Rate 60 Respiratory Rate 16 Respiratory Effort Respiratory Pattern Blood Pressure 198/91 H Blood Pressure Mean 126 Pulse Ox 96 Oxygen Delivery Method Room Air Positive well nourished and well developed General Appearance ED: well developed HEENT Reports normocephalic and head/scalp atraumatic Eyes PERRL and EOMs intact bilaterally Neck supple Chest Wall inspection of chest normal and palpation of chest normal Resp normal respiratory effort and clear to auscultation bilaterally Cardio regular rate and regular rhythm GI normal to inspection, nondistended, normoactive bowel sounds Palpation: soft Extremity normal to inspection Neuro oriented x3 and no sensory deficits noted Sensorium / Orientation: alert Motor Exam: strength 5/5 throughout Psych mental status grossly normal Skin no rashes or lesions noted MDM MDM MDM Narrative Medical decision making narrative: Patient placed on radiographer cardiac catheterization. EKG obtained to evaluate for cardiac arrhythmia/ischemia. Chest x-ray obtained to evaluate for acute lung pathology, cardiac size, or mediastinal abnormality. Labwork obtained to evaluate for leukocytosis, anemia, and electrolyte derangement. Lab Data Attestation: I reviewed the patient's lab results. Labs: Laboratory Results - last 24 hr 03/26/23 03/26/23 10:15 10:15 WBC 6.6 RBC 5.57 Hgb 16.7 H Hct 51.7 MCV 92.8 MCH 30.0 MCHC 32.3 RDW Std Deviation 45.1 H RDW Coeff of [place] 13.3 Plt Count 231 MPV 10.6 Immature Gran % (Auto) 0.800 Neut % (Auto) 74.8 H Lymph % (Auto) 12.9 L Rice % (Auto) 8.8 Eos % (Auto) 2.1 Baso % (Auto) 0.6 Absolute Neuts (auto) 4.9 Absolute Lymphs (auto) 0.85 Nucleated RBC % 0 Sodium 137 Potassium 4.4 Chloride 104 Carbon Dioxide 31.0 Anion Gap 2 L BUN 16 Creatinine 1.30 Estim Creat Clear Calc 42.38 Est GFR (MDRD) Af Amer 68 Est GFR (MDRD) Non-Af 56 L BUN/Creatinine Ratio 12.3 Glucose 115 H Calcium 8.9 Radiography Chest X-Ray - ED: 1 View, Read by ED Physician and Chronic Changes Diagnostic Testing: Clinical Impression(s) from Imaging Studies Chest X-Ray 03/26/23 10:34 IMPRESSION: No acute pulmonary process Electronically Signed: Fly Diane MD at 10:59 EDT Reading Location ID and State: [facility] / [place] , Service support , EKG Initial EKG: Attestation: I personally reviewed and interpreted this EKG as follows: Interpretation: Sinus Bradycardia (Sinus bradycardia 57 bpm. Right bundle branch block noted. No acute ischemia.) Treatment and Re-Evaluation :: Patient was given 10 mg of IV labetalol. Blood pressure is currently 173/81 with a heart rate of 58. CBC reveals normal white count. Hemoglobin is concentrated at 16.7. Chemistry studies reveal a BUN of 16 and a creatinine of 1.3. Portable chest x-ray per my interpretation reveals chronic changes with no focal infiltrate. No significant cardiomegaly noted. Radiology interpretation is reviewed and agrees. I spoke with the patient's primary care physician, Dr. Jb Yeboah. 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 He wants to see the patient in the office next week for blood pressure check and quick visit. Patient will call the office for follow-up. Discharge Plan Triage Chief Complaint: Hypertension ED Provider: Kelsey Bruce Dx/Rx/DC Orders Clinical Impression: Hypertension Instructions: ED Hypertension New Begin Treatment Prescriptions: No Action testosterone 20.25 mg/1.25 gram (1.62 %) gel in metered-dose pump 1 topical DAILY Label Comments: APPLY 2 PUMPS TOPICALLY DAILY PreserVision AREDS-2 250-90-40-1 mg Capsule 1 tab PO BID Primary Care Provider: Jb Yeboah Referrals: Jb Yeboah MD [Primary Care Provider] - 3-5 Days Activity Restrictions/Additional Instructions: As discussed, Dr. Yeboah has called a prescription for ramipril (a blood pressure medicine) into the pharmacy for you at [facility]. Please take this daily at supper. Keep a journal of your blood pressure readings. Dr. Yeboah would like to see you in the office next week for a follow-up visit. Disposition Disposition: Home, Self Care
[2023-03-26] MEDS: Labetalol (Prefilled) 20 MG/4 ML 10 MG IV (10:20)
[2023-03-26 10:25] LABS: Absolute Lymphocyte Count 0.85 X10^3/uL (0.83-4.51); Absolute Neutrophil Count 4.9 X10^3/uL (2.0-7.7); Basophil# 0.04 X10^3/uL; Basophil% 0.6 % (0-1); Eosinophil# 0.14 X10^3/uL; Eosinophils% 2.1 % (0-5); Hematocrit 51.7 % (40-54); Hemoglobin 16.7 g/dL (13.0-16.5); Lymphocyte # 0.85 X10^3/ul (0.83-4.51); Lymphocyte % 12.9 % (19-41); Mean Corp Hgb Conc 32.3 g/dL (32-36); Mean Corpuscular Volume 92.8 fL (80-94); Mean Platelet Vol. 10.6 fl (6.2-12.0); Monocyte# 0.58 X10^3/uL; Monocyte% 8.8 % (0-10); NRBC Flagged by Analyzer 0 % (0-5); Neutrophil # 4.92 X10^3/uL (2.7-7.7); Neutrophil % 74.8 % (47-70); Platelet Count 231 K/mm3 (150-450); RBC Distribution Width CV 13.3 % (11.6-14.6); RBC Distribution Width SD 45.1 fl (35.1-43.9); Red Blood Count 5.57 M/mm3 (4.6-6.2); White Blood Count 6.6 K/mm3 (4.4-11.0)
--- NOTE | 2023-03-26 10:34 | RAD_ITS ---
STUDY: X-RAY CHEST REASON FOR EXAM: Male, 82 years old. Atypical chest pain TECHNIQUE: Single AP portable view of the chest. COMPARISON: None. FINDINGS: EKG leads overlie the chest The lungs are clear and expanded. There is no demonstrated pleural abnormality. Normal size heart. Normal mediastinum and dany. Normal visualized pulmonary arteries. Normal visualized aortic arch and descending thoracic aorta. There are diffuse degenerative changes of the visualized thoracic spine. Normal visualized ribs, clavicles, and shoulders. There is no demonstrated abnormality of the visualized soft tissue structures of the upper abdomen. RAD/Chest 1 View (Portable) IMPRESSION: No acute pulmonary process Electronically Signed: Fly Diane MD at 10:59 EDT ,
[2023-03-26 10:36] LABS: Anion Gap 2 (5-15); BUN 16 mg/dL (7-18); BUN/Creat Ratio 12.3 RATIO (10-20); Calcium,Total 8.9 mg/dL (8.5-10.1); Chloride 104 mmol/L (98-107); EST Glomerular Filtration Rate 56 mL/min (>60); Est Glom Filt Rate - Afr Amer 68 mL/min (>60); Estimated Creatinine Clearance 42.38 ml/min; Glucose 115 mg/dL (74-106); Potassium 4.4 mmol/L (3.5-5.1); Sodium Level 137 mmol/L (136-145)
[2023-03-26 11:05] LABS: Bacteria 0 SEEN /hpf (None Seen); Mucous, Urine 0 SEEN /hpf (<or=2+); Red Blood Cells-Urine 0 SEEN /hpf (0-5); Squamous Epithelial Cells - UA 0 SEEN /hpf (0-5); White Blood Cells 0 SEEN /hpf (0-5)
[2023-03-26 11:18] LABS: Color, Urine Yellow (Yellow); Glucose, Dipstick Normal (Normal); Ketone-Dipstick Negative (Negative); Leukocyte Esterase-Dipstick Negative /ul (Negative); Nitrite-Dipstick Negative (Negative); Occult Blood-Urine Negative /ul (Negative); Protein-Dipstick 30 mg/dl (Negative); Urine Bilirubin Dipstick Negative (Negative); Urine Clarity Clear (Clear); Urine Urobilinogen Normal (Normal)
[2023-03-26] MEDS: hydrALAZINE 20 MG/ML Vial 10 MG IV (11:23)
== END 2023-03-26 12:27 | disposition home or self-care (01) ==
PROVIDERS: Emergency Provider Emergency Medicine; PCP Family Medicine; Visit Provider Emergency Medicine
DX: I10 Essential (primary) hypertension (principal); Z87.891 Personal history of nicotine dependence; Z85.46 Personal history of malignant neoplasm of prostate; Z90.49 Acquired absence of other specified parts of digestive tract
CPT/HCPCS: 71045; 80048; 81001; 85025; 93005; 99284; A4216

== ENCOUNTER → 2023-03-29 | Outpatient (CLI) | payer MEDICARE, OTHER, SELFPAY ==
[2023-03-29 11:26] LABS: PSA,Total - Annual Screen 0.73 ng/mL (0.00-4.00)
== END | disposition home or self-care (01) ==
LOC: LAB 10:21
PROVIDERS: PCP Family Medicine; Referring Provider Urology; Visit Provider Urology
DX: C61 Malignant neoplasm of prostate (principal)
CPT/HCPCS: 36415; 84153; 84403; G0103

== ENCOUNTER → 2024-01-28 | Outpatient (CLI) | payer MEDICARE, OTHER, SELFPAY ==
[2024-01-28 15:27] LABS: ALB/GLOB Ratio 1.1 RATIO (0.9-2.4); AST(SGOT) 13 U/L (15-37); Alanine Aminotransfer ALT/SGPT 21 U/L (16-61); Albumin, Serum 3.5 g/dL (3.2-5.0); Alkaline Phosphatase 97 U/L (45-117); Anion Gap 5 (5-15); BUN 26 mg/dL (7-18); BUN/Creat Ratio 16.9 RATIO (10-20); CRP 5.43 mg/L (0.0-3.0); Calcium,Total 8.6 mg/dL (8.5-10.1); Chloride 101 mmol/L (98-107); Creatinine, Serum 1.54 mg/dL (0.70-1.30); EST Glomerular Filtration Rate 46 mL/min (>60); Est Glom Filt Rate - Afr Amer 56 mL/min (>60); Globulin 3.2 g/dL (2.2-4.2); Glucose 127 mg/dL (74-106); PSA,Total- Diagnostic 0.71 ng/mL (0.0-4.0); Potassium 3.9 mmol/L (3.5-5.1); Protein, Total 6.7 g/dL (6.4-8.2); Sodium Level 138 mmol/L (136-145)
[2024-01-28 15:37] LABS: Microalbumin,Random Urine 60.5 mg/L (NO RANGE EST.); Microalbumin:Creatinine Ratio 29.1 mg/g CRE (<30 mg/g CRE)
[2024-01-28 16:14] LABS: Erythrocyte Sedimentation Rate 12 mm/hr (0-20)
== END | disposition home or self-care (01) ==
LOC: MTLAB 13:41
PROVIDERS: PCP Family Medicine; Referring Provider Family Medicine; Visit Provider Family Medicine
DX: I10 Essential (primary) hypertension (principal); C61 Malignant neoplasm of prostate; N49.2 Inflammatory disorders of scrotum
CPT/HCPCS: 36415; 80053; 82043; 82570; 84153; 85652; 86140

== ENCOUNTER → 2024-07-27 | Outpatient (CLI) | payer MEDICARE, OTHER, SELFPAY ==
[2024-07-27 15:46] LABS: Anion Gap 3 (5-15); BUN 20 mg/dL (7-18); BUN/Creat Ratio 14.2 RATIO (10-20); Calcium,Total 9.1 mg/dL (8.5-10.1); Chloride 103 mmol/L (98-107); Creatinine, Serum 1.41 mg/dL (0.70-1.30); EST Glomerular Filtration Rate 51 mL/min (>60); Est Glom Filt Rate - Afr Amer 62 mL/min (>60); Glucose 110 mg/dL (74-106); Potassium 4.2 mmol/L (3.5-5.1); Sodium Level 137 mmol/L (136-145)
== END | disposition home or self-care (01) ==
PROVIDERS: PCP Family Medicine; Referring Provider Family Medicine; Visit Provider Family Medicine
DX: R97.20 Elevated prostate specific antigen [PSA] (principal)
CPT/HCPCS: 36415; 80048

== ENCOUNTER → 2025-01-22 | Outpatient (CLI) | payer MEDICARE, OTHER, SELFPAY ==
[2025-01-22 18:23] LABS: Absolute Lymphocyte Count 1.09 X10^3/uL (0.83-4.51); Absolute Neutrophil Count 4.2 X10^3/uL (2.0-7.7); Basophil# 0.05 X10^3/uL; Basophil% 0.8 % (0-1); Eosinophil# 0.14 X10^3/uL; Eosinophils% 2.3 % (0-5); Hematocrit 45.8 % (40-54); Hemoglobin 14.8 g/dL (13.0-16.5); Lymphocyte # 1.09 X10^3/ul (0.83-4.51); Lymphocyte % 18.1 % (19-41); Mean Corp Hgb Conc 32.3 g/dL (32-36); Mean Corpuscular Hgb 30.3 pg (27.0-32.0); Mean Corpuscular Volume 93.9 fL (80-94); Mean Platelet Vol. 10.6 fl (6.2-12.0); Monocyte# 0.52 X10^3/uL; Monocyte% 8.6 % (0-10); NRBC Flagged by Analyzer 0 % (0-5); Neutrophil # 4.19 X10^3/uL (2.7-7.7); Neutrophil % 69.7 % (47-70); Platelet Count 252 K/mm3 (150-450); RBC Distribution Width CV 13.2 % (11.6-14.6); RBC Distribution Width SD 45.9 fl (35.1-43.9); Red Blood Count 4.88 M/mm3 (4.6-6.2)
[2025-01-22 19:43] LABS: ALB/GLOB Ratio 1.6 RATIO (0.9-2.4); AST(SGOT) 17 U/L (<=37); Alanine Aminotransfer ALT/SGPT 14 U/L (<=46); Albumin, Serum 4.1 g/dL (3.4-4.8); Alkaline Phosphatase 76 U/L (40-129); Anion Gap 10 (5-15); BUN 23 mg/dL (4-19); BUN/Creat Ratio 16.8 RATIO (10-20); Calcium,Total 9.2 mg/dL (7.6-11.0); Carbon Dioxide 28.7 mmol/L (21.0-32.0); Chloride 102 mmol/L (98-108); Creatinine, Serum 1.35 mg/dL (0.70-1.20); EST Glomerular Filtration Rate 52 (>60); Globulin 2.6 g/dL (2.2-4.2); Glucose 78 mg/dL (70-99); Potassium 4.2 mmol/L (3.3-5.1); Protein, Total 6.7 g/dL (5.9-8.4); Sodium Level 141 mmol/L (133-145)
[2025-01-22 21:16] LABS: Microalbumin,Random Urine 56.7 mg/L (NO RANGE EST.); Microalbumin:Creatinine Ratio 311.5 mg/g CRE
== END | disposition home or self-care (01) ==
LOC: MFPLAB 14:07
PROVIDERS: PCP Family Medicine; Referring Provider Family Medicine; Visit Provider Family Medicine
DX: I12.9 Hypertensive chronic kidney disease with stage 1 through stage 4 chronic kidney disease, or unspecified chronic kidney disease (principal); N18.31 Chronic kidney disease, stage 3a
CPT/HCPCS: 36415; 80053; 82043; 82570; 85025

== ENCOUNTER → 2025-03-14 | Outpatient (CLI) | payer MEDICARE, OTHER, SELFPAY ==
[2025-03-14 13:23] LABS: PSA,Total- Diagnostic 0.36 ng/mL (0.00-4.00)
== END | disposition home or self-care (01) ==
LOC: MFPLAB 10:17
PROVIDERS: PCP Family Medicine; Visit Provider Nurse Practitioner
DX: C61 Malignant neoplasm of prostate (principal)
CPT/HCPCS: 36415; 84153